=== PATIENT | male | born 1965 | race African-American/Black ===

== ENCOUNTER 2021-04-04 12:21 | Inpatient (IN) | payer BC, MEDICARE, OTHER, MEDICAID ==
[~2021-04-04] VITALS: Ht 182.9 cm; Wt 129.3 kg
--- NOTE | ~2021-04-04 | CON ---
[address] [address] CONSULTATION Name: DEVENDRA MARIE Room: [address] IN M.R.#: [id number] Admission: 04/04/21 Attend Phys: Yani Lobo Discharge: Date of : 67 Report #: [id number] THIS REPORT FOR: cc: Pancho Ponce MD, Alexander MD Khosla,Sai Johns MD ~ DATE OF CONSULTATION: 04/05/2021 HISTORY OF PRESENT ILLNESS: This is a 55-year-old male patient who was evaluated by me for any neurological etiology for the patient's dizziness. He had an episode of dizziness with slurred speech and that lasted about an hour and a half and then it resolved. Presently, he is not having any symptoms. The episode happened spontaneously without any trauma. He did not have this kind of episode before. He had some shortness of breath associated with this. REVIEW OF SYSTEMS: Positive for hypertension and diabetes. He does not know what his blood pressure and blood sugar was when it happened. He has a history of congestive heart failure. He has no prior episodes of TIA or stroke-like symptoms. He has a pacemaker, which he said is incompatible with MRI first, but then he said it might be compatible. 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 He has renal problems, which was noticed during this admission. His GFR is only 27. His blood sugar is 398. One year ago, his blood sugar were 230s, but most of the time it stays high. This was his relevant 14-point review of system. PAST MEDICAL HISTORY: Positive for diabetes and hypertension, but negative for any TIA. FAMILY HISTORY: Unremarkable. SOCIAL HISTORY: Significant other was here and she provided any history. He drinks alcohol rarely. He does not smoke. PHYSICAL EXAMINATION: NEUROLOGIC: The patient's examination indicate he is alert, responsive, able to follow simple and complex commands. His speech, concentration, fund of knowledge and memory is at his baseline. Cranial nerve examination 2-12 was unremarkable. Specifically, there was no nystagmus. He moves all 4 extremities. Reflexes are diminished in the lower extremities, but he is a diabetic. His position sense is intact. He does not have any cerebellar sign. I could not look at the patient's fundus. His tone is symmetrical. He has a pacemaker. He is not having any respiratory difficulty. VITAL SIGNS: His blood pressure is 137/85, respirations 20, pulse is 65, temperature is 97.4. LABORATORY DATA: His GFR is low. His sodium is trace low. His potassium is a [facility] [address] [place] [address] CONSULTATION Name: DEVENDRA MARIE Room: [address] IN .R.#: [id number] Admission: 04/04/21 Attend Phys: Yani Lobo Discharge: Date of : 67 Report #: [id number] trace high. His head CT scan was done. IMPRESSION: It is unlikely that there is a neurological etiology for the patient's symptoms. This is because dizziness was associated with shortness of breath. I will suggest working now for other causes for the patient's symptoms. It would have been highly desirable to rule out any basilar artery problem in this patient, but the problem is his GFR is low. He cannot do CT angiogram of the head and neck. It is not certain whether we can do the MRI in this patient. In any event, he is back to his baseline and he is already on aspirin. I do not think anything urgent need to be done as well as any intracranial pathology is concerned. He does need some further workup, but only we find out if MRI can be done or not, but I will suggest working now for other etiology for dizziness also, especially because it was associated with shortness of breath. Thank you very much for this referral. By: 1356 1425Sai Campos MD /seema
[2021-04-04] MEDS ORDERED: ENTRESTO 49 MG1 EACH PO (12:28)
[2021-04-04] MEDS ORDERED: HYDRALAZINE 2525 M1 PO (12:28)
[2021-04-04] MEDS ORDERED: METFORMIN HCL500 M3 PO (12:28)
[2021-04-04 12:29] VITALS: BP 160/85
--- NOTE | 2021-04-04 13:50 | EKG ---
[place] [address] ELECTROCARDIOGRAM REPORT Name: DEVENDRA MARIE Room: [facility]#: [id number] Admission: 04/04/21 Attend Phys: Discharge: Date of : 67 Date of Service: 04/04/21 1231 Report #: [id number] THIS REPORT FOR: //name// [facility] ED Test Date: 2021-04-04 Test Time: 12:31:57 Pat Name: DEVENDRA MARIE Department: Room: Gender: Management Planner: [facility] : 1965 Requested By: Sharan Sanon Order Number: [id number] MD: Sulaiman Crow Measurements Intervals [place] Rate: 71 P: 9 PA: 174 QRS: 198 QRSD: 162 T: -7 QT: 435 QTc: 473 Interpretive Statements Atrial-sensed ventricular-paced rhythm No further analysis attempted due to paced rhythm Baseline wander in lead(s) V1,V5 No previous ECG available for comparison Electronically Signed On 04-04-2021 13:50:37 CDT by Sulaiman Crow [email or web address] <ELECTRONICALLY SIGNED> By: Sulaiman Crow MD, [facility] 04/04/21 1350 1231 1231 Sulaiman Crow MD, [facility] /EPI
[2021-04-04 14:28] LABS: ABSOLUTE BASOPHILS 0.2 thou/uL (0.0-0.2); ABSOLUTE EOSINOPHILS 0.3 thou/uL (0.0-0.7); ABSOLUTE LYMPHOCYTES 1.7 thou/uL (0.8-5.3); ABSOLUTE MONOCYTES 0.5 thou/uL (0.0-1.2); ABSOLUTE NEUTROPHILS 8.1 thou/uL (1.6-8.1); BASOPHILS 1.5 %; EOSINOPHILS 3.1 %; HEMATOCRIT 42.4 % (42.0-52.0); HEMOGLOBIN 13.6 gm/dL (14.0-18.0); LYMPHOCYTES 15.7 %; MCH 24.4 pg (26.0-34.0); MCV 76.3 fL (80.0-100.0); MPV 9.4 fl. (7.2-11.1); NUCLEATED RBCS 0 /100WBC; PLATELET COUNT* 237 thou/uL (150-400); POLYS 74.7 %; RBC 5.56 mil/uL (4.50-6.00); RDW-CV 14.1 % (10.5-14.5); WBC 10.9 thou/uL (4.0-11.0)
[2021-04-04 14:48] LABS: CALCIUM 9.4 mg/dL (8.5-10.1); POTASSIUM 5.6 mmol/L (3.5-5.1)
[2021-04-04 14:53] LABS: ALBUMIN 3.8 g/dL (3.4-5.0); TOTAL BILIRUBIN 0.4 mg/dL (<0.1-1.0); TOTAL PROTEIN 7.8 g/dL (6.4-8.2)
[2021-04-04 19:05] VITALS: BP 171/87
[2021-04-04 23:00] VITALS: BP 130/75
[2021-04-05] VITALS (7 sets, daily range): BP systolic 106–146; BP diastolic 51–89
--- NOTE | 2021-04-05 10:44 | NUR ---
0940: PATIENT ADMITTED TO [facility] VIA WHEELCHAIR, ACCOMPANIED BY EChristin NURSE. ADMITTED FOR DIZZINESS AND SHORT OF AIR. PATIENT ORIENTED TO ROOM AND FLOOR. PATIENT HAD BATTERIES IN HIS PACEMAKER REPLACED ON March. IV TO RIGHT WRIST, PATENT. VITAL SIGNS WNL. ALL QUESTIONS AND CONCERNS ADDRESSED.
--- NOTE | 2021-04-05 16:28 | 2DMMODE ---
[place] [address] 2 D/M-MODE ECHOCARDIOGRAM Name: DEVENDRA MARIE Room: [address] IN [facility]#: [id number] Admission: 04/04/21 Attend Phys: Naveen Abbott Discharge: Date of : 67 Date of Service: 04/05/21 1627 Report #: [id number] THIS REPORT FOR: cc: Pancho Ponce MD, Alexander MD Liston, Michael J. MD [facility] ~ APPROVED REPORT Study performed: 04/05/2021 15:08:34 EXAM: Comprehensive 2D, Doppler, and color-flow Echocardiogram Patient Location: In-Patient Room #: [facility] Status: routine BSA: 2.48 HR: 75 bpm BP: 137/85 mmHg Rhythm: NSR Other Information Study Quality: Good Indications CVA/TIA Echo Enhancing Agent Indication: Rule out Shunt Agent(s) / Amount(s) Used: Agitated Saline 10 cc 2D Dimensions IVSd: 16.35 (7-11mm) LVOT Diam: 22.28 (18-24mm) LVDd: 65.28 mm PWd: 13.45 (7-11mm) Ascending Ao: 34.56 (22-36mm) LVDs: 47.54 (25-40mm) Aortic Root: 35.30 mm Volumes Left Atrial Volume (Systole) LA ESV Index: 36.90 mL/m2 Aortic Valve AoV Peak Rylan.: 1.82 m/s AO Peak Gr.: 13.24 mmHg LVOT Max P.89 mmHg AO Mean Gr.: 8.10 mmHg LVOT Mean P[place]82 [place] [address] 2 D/M-MODE ECHOCARDIOGRAM Name: MARIEDEVENDRA FUENTES Brittany Room: [address] IN .R.#: [id number] Admission: 04/04/21 Attend Phys: Naveen Abbott Discharge: Date of : 67 Date of Service: 04/05/21 1627 Report #: [id number] LVOT Max V: 0.99 m/s AO V2 VTI: 35.12 cm LVOT Mean V: 0.61 m/s AKUA (VTI): 1.91 cm2 LVOT V1 VTI: 17.24 cm Mitral Valve E/A Ratio: 0.61 MV Decel. Time: 209.53 ms MV E Max Rylan.: 0.69 m/s MV PHT: 60.77 ms MVA (PHT): 3.62 cm2 TDI E/Medial E': 13.80 Medial E' Rylan.: 0.05 m/s Pulmonary Valve PV Peak Rylan.: 0.93 m/s PV Peak Gr.: 3.45 mmHg Tricuspid Valve RAP Estimate: 5.00 mmHg TR Peak Gr.: 20.67 mmHg RVSP: 25.00 mmHg PA Pressure: 25.00 mmHg Left Ventricle The left ventricle is normal size. Left ventricular systolic dyssynergy consistent with underlying paced rhythm. Moderate concentric left ventricular hypertrophy. Left ventricular systolic function is borderline. LVEF is 50-55%. Grade I - abnormal relaxation pattern. Right Ventricle The right ventricle is normal size. The right ventricular systolic function is normal. Pacemaker lead is present in the right ventricle. Atria Left atrium is mildly dilated. Bubble study suboptimal. Cannot rule out right to left shunt. The right atrium size is normal. Aortic Valve Mild aortic valve sclerosis. No aortic regurgitation is present. Mild aortic stenosis. Mitral Valve The mitral valve is normal in structure. There is no mitral valve regurgitation noted. No evidence of [place] [address] 2 D/M-MODE ECHOCARDIOGRAM Name: DEVENDRA MARIE Room: [address] IN [facility]#: [id number] Admission: 04/04/21 Attend Phys: Naveen Abbott Discharge: Date of : 67 Date of Service: 04/05/21 1627 Report #: [id number] Tricuspid Valve The tricuspid valve is normal in structure. Trace tricuspid regurgitation. No pulmonary hypertension. Pulmonic Valve The pulmonary valve is normal in structure. There is no pulmonic valvular regurgitation. Great Vessels The aortic root is normal in size. IVC is normal in size and collapses >50% with inspiration. Pericardium There is no pericardial effusion. <Conclusion> The left ventricle is normal size. Moderate concentric left ventricular hypertrophy. The left ventricle is normal size. Moderate concentric left ventricular hypertrophy. Left ventricular systolic function is borderline. LVEF is 50-55%. Grade I - abnormal relaxation pattern. Left ventricular systolic dyssynergy consistent with underlying paced rhythm. Left atrium is mildly dilated. Pacemaker lead is present in the right ventricle. Mild aortic valve sclerosis. Mild aortic stenosis. Trace tricuspid regurgitation. No pulmonary hypertension. IVC is normal in size and collapses >50% with inspiration. Left ventricular myocardium has a groundglass appearance. Consider infiltrative process. Bubble study suboptimal. Cannot rule out right to left shunt. <ELECTRONICALLY SIGNED> By: South Kaminski MD, FACC 04/05/21 1627 162 162 South Kaminski MD, FACC /INF
--- NOTE | 2021-04-05 17:23 | NUR ---
PATIENT BLOOD SUGAR 479. 20UNITS HUMALOG (SLIDING SCALE) GIVEN. DR. ABARCA NOTIFIED. NO NEW ORDERS. WILL CONTINUE TO MONITOR.
--- NOTE | 2021-04-05 19:05 | NUR ---
PATIENT RESTING IN BED, FRIEND AT BEDSIDE. PACEMAKER TO RIGHT UPPER CHEST. IV TO RIGHT WRIST, SALINE LOCKED, PATENT. BLOOD SUGARS MONITORED. BLOOD SUGAR 428. DR. ALVARADO - PHONE CALL ORDER: 10 UNITS REGULAR INSULIN IVPUSH. SLIDING SCALE TO HIGH. WILL CONTINUE TO MONITOR. ALL QUESTIONS AND CONCERNS ADDRESSED.
[2021-04-05 21:28] LABS: CALCIUM 9.8 mg/dL (8.5-10.1); CREATININE 2.8 mg/dL (0.6-1.3); POTASSIUM 4.2 mmol/L (3.5-5.1)
[2021-04-06 00:30] VITALS: BP 134/67
--- NOTE | 2021-04-06 02:36 | NUR ---
ASSUMED CARE OF PT AT 1900. PT IS ALERT AND ORIENTED. VSS. PERRLA. NO COMPLAINTS OF PAIN. UP AD SHAMRI. PT IS ON ROOM AIR. PT IS V PACED ON THE TELEMETRY. PT IS RESTING COMFORTABLY IN BED. RESPIRATIONS ARE EVEN AND NONLABORED. WILL CONTINUE TO MONITOR PT.
[2021-04-06 04:17] VITALS: BP 134/74
[2021-04-06 04:21] LABS: CALCIUM 8.6 mg/dL (8.5-10.1); CREATININE 2.9 mg/dL (0.6-1.3); POTASSIUM 4.4 mmol/L (3.5-5.1)
[2021-04-06 08:00] VITALS: BP 140/79
--- NOTE | 2021-04-06 10:34 | NUR ---
The patient is alert and orienated x4. Denies pain. No distress noted. Denies CP or SOB. Call light within reach.
[2021-04-06 12:00] VITALS: BP 122/69
[2021-04-06 12:26] VITALS: BP 140/79
[2021-04-06] MEDS ORDERED: CARVEDILOL12.5 MG PO (12:28)
--- NOTE | 2021-04-06 14:53 | NUR ---
CM ASSESSMENT: PT A&O, INDEPENDENT WITH ADL'S, ACTIVE AND WORKS OUTSIDE THE HOME. PT RESIDES AT HOME WITH SIGNIFICANT OTHER. PT USES 0 DME. PT HAS 0 HX OF HH OR SNF. NO CM D/C PLANNING NEEDS ANTICIPATED. CM WILL REMAIN AVAILABLE TO ASSIST AND FOLLOW NEEDED.
--- NOTE | 2021-04-06 15:39 | NUR ---
Dr Lang was in to see the patient.
--- NOTE | 2021-04-06 15:49 | NUR ---
Discharge instructions given to the patient. Verbalized understanding.
--- NOTE | 2021-04-07 13:14 | CON ---
[address] [address] CONSULTATION Name: DEVENDRA MARIE Room: [address] IN M.R.#: [id number] Admission: 04/04/21 Attend Phys: Yani Lobo Discharge: 04/06/21 Date of : 67 Report #: [id number] THIS REPORT FOR: cc: Pancho Ponce MD, Alexander MD Liston,South García MD FAC ~ cc: South Alvarez MD, Pancho Ponce MD DATE OF CONSULTATION: 04/05/2021 CARDIOLOGY CONSULTATION INDICATION: Near syncope. HISTORY OF PRESENT ILLNESS: The patient is a very pleasant 55-year-old gentleman who was admitted through the emergency room after having a profound dizzy spell at work. He had some diaphoresis and shortness of breath with the episode. The patient went to his break room and sat down and took some deep breaths. He had some shortness of breath during this episode. He was eventually brought to the hospital. The patient's significant other noted that he was slurring his speech and somewhat lethargic and not tracking during this time. The patient was checked into the emergency room and ultimately seen in the Emergency Department. By the time he was actually seen, his symptoms had resolved. He denies any chest pain with this. He is back to his baseline today. He has a history of systolic heart failure and is followed through the Heart Transplant [facility] at [facility]. He is on a regimen consistent with heart failure. He reports that over the past year or year and a half, his heart function has improved. He is presently on a regimen of heart failure medications including torsemide, carvedilol, Entresto and hydralazine. He reports his Entresto dose being increased approximately a month ago. This past month, he also moved in with his girlfriend who is a vegetarian. His diet has changed significantly since moving in with her. At this time, he is without cardiac complaint. PAST MEDICAL HISTORY: 1. Chronic systolic heart failure. 2. Nonischemic cardiomyopathy, presumed secondary to hypertension. 3. Hypertension. 4. Type 2 diabetes mellitus. ALLERGIES: [place] [address] CONSULTATION Name: DEVENDRA MARIE Room: [address]#: [id number] Admission: 04/04/21 Attend Phys: Yani Lobo Discharge: 04/06/21 Date of : 67 Report #: [id number] HOME MEDICATIONS: Hydralazine 25 mg p.o. t.i.d., Entresto 49/51 one tablet p.o. daily, metformin extended release 1 tablet b.i.d., torsemide 40 mg q.a.m. and 20 mg q.p.m., carvedilol dose unknown, twice daily. SOCIAL HISTORY: The patient is a nonsmoker. Drinks alcohol only on special occasions. He lives with his girlfriend. REVIEW OF SYSTEMS: A 14-point review of systems positive for the dizzy and near syncopal episode he had yesterday. Otherwise, unremarkable. PHYSICAL EXAMINATION: VITAL SIGNS: Stable. Blood pressure 140/85, pulse 65 and regular. GENERAL: This is a pleasant gentleman who is in no distress. Mood and affect appropriate. Vital signs stable as outlined above. NECK: Examination of the neck shows no jugular venous distention. There are no carotid bruits. CHEST: Reveals clear lung abad without wheezes or rales. CARDIAC: Reveals a regular rhythm with normal S1, S2. I do not appreciate gallop or murmur. ABDOMEN: Reveals a protuberant abdomen is soft and nontender. Bowel sounds are present. EXTREMITIES: Shows no edema. SKIN: Dry. Peripheral pulses 2+ and palpable. LABORATORY DATA: Reviewed. Sodium 135, potassium 5.6, chloride 99, bicarbonate 32, BUN 39, creatinine 3.0, serum glucose 398. LFTs within normal limits. Troponin less than 0.06 on 3 separate occasions. D-dimer 0.88. White blood cell count 10.9, hemoglobin 13.6, platelet count 237,000. COVID antigen not detected. Chest x-ray shows cardiomegaly with a pacing ICD in place. No evidence of vascular congestion. Slight left upper lobe pulmonary nodule with recommended followup CT in 3 months. Bilateral carotid Doppler showed no hemodynamically significant stenoses. CT of the head suggests old left occipital area infarct or encephalomalacia, which is subacute/chronic. Interrogation of the patient's defibrillator today shows no evidence of atrial fibrillation or ventricular arrhythmias. IMPRESSION AND RECOMMENDATIONS: 1. Dizziness. Etiology not clear. His symptoms have resolved. I suspect he [address] [address] CONSULTATION Name: DEVENDRA MARIE Room: [address] IN M.R.#: [id number] Admission: 04/04/21 Attend Phys: Naveen BlackYani Early Discharge: 04/06/21 Date of : 67 Report #: [id number] may be having some medication-induced hypotension with recent lifestyle changes and continued use of moderate dose of diuretic. His diuretics have been held here in the hospital. We will follow labs. At this point in time, I would like to continue Entresto, carvedilol, and hydralazine as tolerated. 2. Chronic systolic heart failure that appears fairly compensated at this point in time. Continue home medications as tolerated. 3. Acute on probable chronic renal insufficiency. Repeating labs in a.m. 4. Hypertension. Resume home heart failure regimen with the exclusion of diuretics at this time. 5. Hyperkalemia. Repeat labs in a.m. 6. Status post implantable cardioverter defibrillator, presumably for primary prevention. Implantable cardioverter defibrillator appears to be functioning normally by bedside interrogation today. No arrhythmias noted. 7. History of probable chronic/subacute stroke. Etiology not clear. Neurology consult pending. <ELECTRONICALLY SIGNED> By: South Kaminski MD, FACC 04/07/21 1314 1639 1930South Kaminski MD, FACC /nt
--- NOTE | 2021-04-08 10:06 | CON ---
[address] [address] CONSULTATION Name: DEVENDRA MARIE Room: [address] IN M.R.#: [id number] Admission: 04/04/21 Attend Phys: Yani Lobo Discharge: 04/06/21 Date of : 67 Report #: [id number] THIS REPORT FOR: cc: Pancho Ponce MD, Alexander MD Khan,Mireya Galvan MD ~ DATE OF CONSULTATION: 04/06/2021 NEPHROLOGY CONSULTATION REASON FOR CONSULTATION: Elevated creatinine. HISTORY OF PRESENT ILLNESS: A 55-year-old gentleman who was admitted with a dizzy spell and concern for possible medication related hypotension and dehydration. He tells me that a month ago, his Entresto was increase and he is also taking 60 mg of torsemide at home. His torsemide has been put on hold. He currently appears to be comfortable. He has no complaints. No shortness of breath. He is hopeful to go home. He does not have a kidney doctor. He tells me that he saw a kidney doctor in the hospital at [facility] about 2 years ago, but was told that his kidney function had improved and he did not need to see one as an outpatient. Denies any nausea, vomiting, or diarrhea. Denies any NSAID use and has no knowledge of any current or ongoing kidney disease. REVIEW OF SYSTEMS: Constitutional, psych, heme, eyes, ENT, respiratory, cardiac, GI, , endocrine, all negative except as documented above. PAST MEDICAL HISTORY: Diabetes type 2, hypertension, nonischemic cardiomyopathy, chronic systolic heart failure. CURRENT MEDICATIONS: Reviewed. SOCIAL HISTORY: No tobacco. FAMILY HISTORY: Not pertinent for this 55-year-old gentleman. PHYSICAL EXAMINATION: VITAL SIGNS: Blood pressure is 140/79, pulse 65, respirations 18, temperature 36.5. GENERAL: No acute distress. HEENT: Eyes are open. Ears are externally normal. NECK: Supple. CARDIAC: Regular rate. LUNGS: No crackles. ABDOMEN: Soft. MUSCULOSKELETAL: Nontender, [place] [address] CONSULTATION Name: DEVENDRA MARIE Room: [address]#: [id number] Admission: 04/04/21 Attend Phys: Yani Lobo Discharge: 04/06/21 Date of : 67 Report #: [id number] PSYCHIATRIC: Awake, alert. LABORATORY DATA: Sodium 141, potassium 4.4, chloride 105, bicarbonate 29, BUN 45, creatinine 2.9, glucose 293, calcium 8.6, white cell count 10.9, hemoglobin 13.6 and platelets 237. ASSESSMENT: 1. Acute kidney injury. Baseline creatinine is unknown. His admission creatinine was 3.0, it is now 2.9, and has been stable over the last 3 times that has been checked. This is in the setting of Entresto being doubled a month ago and also being on 40 mg of torsemide in the morning and 20 mg in the evening with orthostatic type symptoms on presentation. 2. Chronic systolic heart failure with a history of nonischemic cardiomyopathy. 3. Hypertension. 4. Diabetes type 2, non-insulin dependent. PLAN: Creatinine is stable and appears to have peaked. He is currently off of torsemide, would suggest holding the Entresto until creatinine returns to baseline. We will need to review outpatient records to determine his baseline. He will need a UA and a renal ultrasound as well. He tells me that he is being discharged today and if this is the case, workup can be done as an outpatient. I did give him my card to set up an outpatient appointment. If he remains here, we can do the workup as an inpatient. Thank you for requesting my opinion in the care and management of this patient. <ELECTRONICALLY SIGNED> By: Mireya Lang MD 04/08/21 1006 1311 1549Abiyani Lang MD /nt
== END 2021-04-06 16:21 | disposition home or self-care (01) | DRG 683 ==
LOC: M.ERS 12:21 → M.TBA-ER 15:30 → M.2W 15:30 → M.TBA-ER 23:07 → M.2W 04-05 09:45
PROVIDERS: Family Medicine; Internal Medicine Cardiovascular Disease; ADMIT Internal Medicine; ATTEND Internal Medicine
DX: N17.9 Acute kidney failure, unspecified (principal); I50.22 Chronic systolic (congestive) heart failure; I42.8 Other cardiomyopathies; E11.9 Type 2 diabetes mellitus without complications; E87.5 Hyperkalemia; Z20.822 Contact with and (suspected) exposure to COVID-19; I11.0 Hypertensive heart disease with heart failure